=== PATIENT | female | born 2000 | race Caucasian/White ===

== ENCOUNTER 2020-12-16 11:08 | Inpatient (IN) | payer OTHER ==
[2020-12-16] MEDS ORDERED: Terbutaline 1 MG/ML SDV SUBCUT PRN (11:24)
[2020-12-16] MEDS ORDERED: Nalbuphine 10 MG/1 ML Vial IVPUSH PRN (11:24)
[2020-12-16] MEDS ORDERED: Water For Irrigation,Sterile 1,000 ML Container IRR PRN (11:24)
[2020-12-16] MEDS ORDERED: Butorphanol 1 MG/ML SDV IVPUSH PRN (11:24)
[2020-12-16] MEDS ORDERED: Lidocaine 1% 50 ML MDV INJECT PRN (11:24)
[2020-12-16] MEDS ORDERED: Misoprostol 200 MCG Tab PO PRN (11:24)
[2020-12-16] MEDS ORDERED: Sodium Chloride 0.9% 2.5 ML Syringe FLUSH PRN (11:24)
[2020-12-16] MEDS ORDERED: Ondansetron 4 MG/2 ML SDV IVPUSH PRN (11:24)
[2020-12-16] MEDS ORDERED: Sodium Chloride 0.9% 10 ML SDV IV PRN (11:24)
[2020-12-16] MEDS ORDERED: Sodium Chloride 0.9% 10 ML Syringe FLUSH PRN (11:24)
[2020-12-16] MEDS ORDERED: Tranexamic Acid 1,000 MG in Sodium Chloride 0.9% 100 ML IV PRN (11:24)
[2020-12-16] MEDS ORDERED: Carboprost Tromethamine 250 MCG/1 ML Amp IM PRN (11:24)
[2020-12-16] MEDS ORDERED: Methylergonovine 0.2 MG/1 ML Amp IM PRN (11:24)
[2020-12-16] MEDS ORDERED: Oxytocin/0.9 % Sodium Chloride 30 UNIT/500 ML BAG IV SCH ×2 (11:30)
[2020-12-16] MEDS ORDERED: Lactated Ringers 1,000 ML IV SCH (11:30)
[2020-12-16] MEDS ORDERED: Misoprostol 25 MCG (1/4 of 100 MCG) Tab VAG PRN (12:00)
[2020-12-16 12:42] LABS: BLOOD UREA NITROGEN,BUN 6 mg/dL (7.0-18.0); CARBON DIOXIDE,CO2 20.9 mmol/L (21.0-32.0); CHLORIDE,CL 103 mmol/L (98-107); GLUCOSE RANDOM 81 mg/dL (74-106); SODIUM,NA 138 mmol/L (136-145)
[2020-12-16] MEDS: Misoprostol 25 MCG (1/4 of 100 MCG) Tab VAG PRN ×2 (17:23→21:30)
[2020-12-17] MEDS ORDERED: Ropivacaine HCl/PF 200 ML ONE (02:04)
[2020-12-17] MEDS ORDERED: Bupivacaine 0.25% 10 ML SDV ONE (02:04)
--- NOTE | 2020-12-17 02:38 | PCM.PREANE ---
Preanesthetic Assessment - Anesthesia/Transfusion/Family Hx Anesthesia History: No Prior Anesthesia Family History of Anesthesia Reaction: No - Review of Systems General: No Symptoms Pulmonary: No Symptoms Cardiovascular: No Symptoms Gastrointestinal: No Symptoms Neurological: No Symptoms Other: Reports: None - Physical Assessment Height: 5 ft 8 in Weight: 248 lb Mental Status: Alert & Oriented x3 Dentition: Reports: Normal Dentition ROM/Head Extension: Full Lungs: Clear to Auscultation, Normal Respiratory Effort Cardiovascular: Regular Rate, Regular Rhythm - Lab Values: Laboratory Last Values WBC 8.23 K/uL (4.0-11.0) 12/16/20 11:52 RBC 4.38 M/uL (4.30-5.90) 12/16/20 11:52 Hgb 12.8 g/dL (12.0-16.0) 12/16/20 11:52 Hct 38.8 % (36.0-46.0) 12/16/20 11:52 MCV 88.6 fL (80.0-98.0) 12/16/20 11:52 MCH 29.2 pg (27.0-32.0) 12/16/20 11:52 MCHC 33.0 g/dL (31.0-37.0) 12/16/20 11:52 RDW Std Deviation 47.8 fl (28.0-62.0) 12/16/20 11:52 RDW Coeff of Denisa 15 % (11.0-15.0) 12/16/20 11:52 Plt Count 177 K/uL (150-400) 12/16/20 11:52 MPV 12.00 fL (7.40-12.00) 12/16/20 11:52 Nucleated RBC % 0.0 /100WBC 12/16/20 11:52 Nucleated RBCs # 0 K/uL 12/16/20 11:52 Sodium 138 mmol/L (136-145) 12/16/20 12:03 Potassium 4.0 mmol/L (3.5-5.1) 12/16/20 12:03 Chloride 103 mmol/L (98-107) 12/16/20 12:03 Carbon Dioxide 20.9 mmol/L (21.0-32.0) L 12/16/20 12:03 BUN 6 mg/dL (7.0-18.0) L 12/16/20 12:03 Creatinine 0.6 mg/dL (0.6-1.0) 12/16/20 12:03 Est Cr Clr Drug Dosing 149.62 mL/min 12/16/20 12:03 Estimated GFR (MDRD) > 60.0 ml/min 12/16/20 12:03 Glucose 81 mg/dL (74-106) 12/16/20 12:03 Uric Acid 4.5 mg/dL (2.6-7.2) 12/16/20 12:03 Calcium 9.2 mg/dL (8.5-10.1) 12/16/20 12:03 Total Bilirubin 0.2 mg/dL (0.2-1.0) 12/16/20 12:03 AST 21 IU/L (15-37) 12/16/20 12:03 ALT 28 IU/L (14-63) 12/16/20 12:03 Alkaline Phosphatase 249 U/L (46-116) H 12/16/20 12:03 Total Protein 7.0 g/dL (6.4-8.2) 12/16/20 12:03 Albumin 2.6 g/dL (3.4-5.0) L 12/16/20 12:03 Globulin 4.4 g/dL (2.6-4.0) H 12/16/20 12:03 Albumin/Globulin Ratio 0.6 (0.9-1.6) L 12/16/20 12:03 SARS-CoV-2 RNA (RK) NEGATIVE (NEGATIVE) 12/16/20 11:47 Blood Type O POSITIVE 12/16/20 11:52 Antibody Screen NEGATIVE 12/16/20 11:52 - Allergies Allergies/Adverse Reactions: Allergies Allergy/AdvReac Type Severity Reaction Status Date / Time No Known Allergies Allergy Verified 07/11/19 09:11 PreAnesthesia Questionnaire Gastrointestinal History: Reports: Hemorrhoids, Other (See Below) 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 History: 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: - Past Surgical History GI Surgical History: Reports: None - SUBSTANCE USE Tobacco Use Status *Q: Never Tobacco User Tobacco Use Within Last Twelve Months: No Second Hand Smoke Exposure: No Recreational Drug Use History: No - HOME MEDS Home Medications: Home Meds Vits #93/Iron Fum/FA [ Formula Tablet] 1 each PO DAILY 12/16/20 [History] - CURRENT (IN HOUSE) MEDS Current Meds: Current Medications Butorphanol Tartrate (Butorphanol 1 Mg/Ml Sdv) 1 mg IVPUSH Q1H PRN PRN Reason: Pain (severe 7-10) Carboprost Tromethamine (Carboprost Tromethamine 250 Mcg/1 Ml Amp) 250 mcg IM ASDIRECTED PRN PRN Reason: Post Hemorrhage Oxytocin/Sodium Chloride (Oxytocin 30 Unit/500 Ml-Ns) 30 unit in 500 mls @ 2 mls/hr IV TITRATE NABOR; Protocol Lactated Ringer's (Ringers, Lactated) 1,000 mls @ 150 mls/hr IV ASDIRECTED NABOR Last Infusion: 12/16/20 13:15 Dose: 150 mls/hr Documented by: Oxytocin/Sodium Chloride (Oxytocin 30 Unit/500 Ml-Ns) 30 unit in 500 mls @ 999 mls/hr IV TITRATE NABOR Tranexamic Acid 1,000 mg/ (Sodium Chloride) 110 mls @ 660 mls/hr IV ONETIME PRN PRN Reason: Bleeding Lidocaine HCl (Lidocaine 1% 50 Ml Mdv) 50 ml INJECT ONETIME PRN PRN Reason: Laceration repair Methylergonovine Maleate (Methylergonovine 0.2 Mg/1 Ml Amp) 0.2 mg IM ASDIRECTED PRN PRN Reason: Post Hemorrhage Misoprostol (Misoprostol 25 Mcg (1/4 Of 100 Mcg) Tab) 25 mcg VAG ONETIME PRN PRN Reason: Cervical Ripening Last Admin: 12/16/20 13:20 Dose: 25 mcg Documented by: Misoprostol (Misoprostol 25 Mcg (1/4 Of 100 Mcg) Tab) 25 mcg VAG Q4H PRN PRN Reason: Cervical Ripening Last Admin: 12/16/20 21:30 Dose: 25 mcg Documented by: Misoprostol (Misoprostol 200 Mcg Tab) 200 mcg PO ONETIME PRN PRN Reason: Post Hemorrhage Nalbuphine HCl (Nalbuphine 10 Mg/1 Ml Vial) 10 mg IVPUSH Q1H PRN PRN Reason: Pain (severe 7-10) Ondansetron HCl (Ondansetron 4 Mg/2 Ml Sdv) 4 mg IVPUSH Q6H PRN PRN Reason: Nausea/Vomiting Sodium Chloride (Sodium Chloride 0.9% 10 Ml Syringe) 10 ml FLUSH ASDIRECTED PRN PRN Reason: Keep Vein Open Sodium Chloride (Sodium Chloride 0.9% 2.5 Ml Syringe) 2.5 ml FLUSH ASDIRECTED PRN PRN Reason: Keep Vein Open Sodium Chloride (Sodium Chloride 0.9% 10 Ml Sdv) 10 ml IV ASDIRECTED PRN PRN Reason: IV Use Sterile Water (Water For Irrigation,Sterile 1,000 Ml Container) 1,000 ml IRR ASDIRECTED PRN PRN Reason: delivery Terbutaline Sulfate (Terbutaline 1 Mg/Ml Sdv) 0.25 mg SUBCUT ASDIRECTED PRN PRN Reason: Tacysystole Discontinued Medications Bupivacaine HCl (Bupivacaine 0.25% 10 Ml Sdv) Confirm Administered Dose 10 ml .ROUTE .[employer] ONE Stop: 12/17/20 02:05 Ropivacaine (Naropin 0.2%) Confirm Administered Dose 200 mls @ as directed .ROUTE .[employer] ONE Stop: 12/17/20 02:05
--- NOTE | 2020-12-17 02:38 | PCM.PREANE ---
Preanesthetic Assessment - Anesthesia/Transfusion/Family Hx Anesthesia History: No Prior Anesthesia Family History of Anesthesia Reaction: No Transfusion History: No Prior Transfusion(s) - Review of Systems General: No Symptoms Pulmonary: No Symptoms Cardiovascular: No Symptoms Gastrointestinal: No Symptoms Neurological: No Symptoms Other: Reports: None - Physical Assessment NPO Status Date: 12/17/20 NPO Status Time: 00:00 Height: 5 ft 8 in Weight: 248 lb ASA Class: 2 Mental Status: Alert & Oriented x3 Airway Class: Mallampati = 2 Dentition: Reports: Normal Dentition ROM/Head Extension: Full Lungs: Clear to Auscultation, Normal Respiratory Effort Cardiovascular: Regular Rate, Regular Rhythm - Lab Values: Laboratory Last Values WBC 8.23 K/uL (4.0-11.0) 12/16/20 11:52 RBC 4.38 M/uL (4.30-5.90) 12/16/20 11:52 Hgb 12.8 g/dL (12.0-16.0) 12/16/20 11:52 Hct 38.8 % (36.0-46.0) 12/16/20 11:52 MCV 88.6 fL (80.0-98.0) 12/16/20 11:52 MCH 29.2 pg (27.0-32.0) 12/16/20 11:52 MCHC 33.0 g/dL (31.0-37.0) 12/16/20 11:52 RDW Std Deviation 47.8 fl (28.0-62.0) 12/16/20 11:52 RDW Coeff of Denisa 15 % (11.0-15.0) 12/16/20 11:52 Plt Count 177 K/uL (150-400) 12/16/20 11:52 MPV 12.00 fL (7.40-12.00) 12/16/20 11:52 Nucleated RBC % 0.0 /100WBC 12/16/20 11:52 Nucleated RBCs # 0 K/uL 12/16/20 11:52 Sodium 138 mmol/L (136-145) 12/16/20 12:03 Potassium 4.0 mmol/L (3.5-5.1) 12/16/20 12:03 Chloride 103 mmol/L (98-107) 12/16/20 12:03 Carbon Dioxide 20.9 mmol/L (21.0-32.0) L 12/16/20 12:03 BUN 6 mg/dL (7.0-18.0) L 12/16/20 12:03 Creatinine 0.6 mg/dL (0.6-1.0) 12/16/20 12:03 Est Cr Clr Drug Dosing 149.62 mL/min 12/16/20 12:03 Estimated GFR (MDRD) > 60.0 ml/min 12/16/20 12:03 Glucose 81 mg/dL (74-106) 12/16/20 12:03 Uric Acid 4.5 mg/dL (2.6-7.2) 12/16/20 12:03 Calcium 9.2 mg/dL (8.5-10.1) 12/16/20 12:03 Total Bilirubin 0.2 mg/dL (0.2-1.0) 12/16/20 12:03 AST 21 IU/L (15-37) 12/16/20 12:03 ALT 28 IU/L (14-63) 12/16/20 12:03 Alkaline Phosphatase 249 U/L (46-116) H 12/16/20 12:03 Total Protein 7.0 g/dL (6.4-8.2) 12/16/20 12:03 Albumin 2.6 g/dL (3.4-5.0) L 12/16/20 12:03 Globulin 4.4 g/dL (2.6-4.0) H 12/16/20 12:03 Albumin/Globulin Ratio 0.6 (0.9-1.6) L 12/16/20 12:03 SARS-CoV-2 RNA (RK) NEGATIVE (NEGATIVE) 12/16/20 11:47 Blood Type O POSITIVE 12/16/20 11:52 Antibody Screen NEGATIVE 12/16/20 11:52 - Allergies Allergies/Adverse Reactions: Allergies Allergy/AdvReac Type Severity Reaction Status Date / Time No Known Allergies Allergy Verified 07/11/19 09:11 - Blood Blood Available: Yes Product(s) Available: PRBC - Anesthesia Plan Pre-Op Medication Ordered: None - Acknowledgements Anesthesia Type Planned: Epidural Pt an Appropriate Candidate for the Planned Anesthesia: Yes Alternatives and Risks of Anesthesia Discussed w Pt/Guardian: Yes Pt/Guardian Understands and Agrees with Anesthesia Plan: Yes PreAnesthesia Questionnaire Gastrointestinal History: Reports: Hemorrhoids, Other (See Below) 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: - Past Surgical History GI Surgical History: Reports: None - SUBSTANCE USE Tobacco Use Status *Q: Never Tobacco User Tobacco Use Within Last Twelve Months: No Second Hand Smoke Exposure: No Recreational Drug Use History: No - HOME MEDS Home Medications: Home Meds Vits #93/Iron Fum/FA [ Formula Tablet] 1 each PO DAILY 12/16/20 [History] - CURRENT (IN HOUSE) MEDS Current Meds: Current Medications Butorphanol Tartrate (Butorphanol 1 Mg/Ml Sdv) 1 mg IVPUSH Q1H PRN PRN Reason: Pain (severe 7-10) Carboprost Tromethamine (Carboprost Tromethamine 250 Mcg/1 Ml Amp) 250 mcg IM ASDIRECTED PRN PRN Reason: Post Hemorrhage Oxytocin/Sodium Chloride (Oxytocin 30 Unit/500 Ml-Ns) 30 unit in 500 mls @ 2 mls/hr IV TITRATE NABOR; Protocol Lactated Ringer's (Ringers, Lactated) 1,000 mls @ 150 mls/hr IV ASDIRECTED NABOR Last Infusion: 12/16/20 13:15 Dose: 150 mls/hr Documented by: Oxytocin/Sodium Chloride (Oxytocin 30 Unit/500 Ml-Ns) 30 unit in 500 mls @ 999 mls/hr IV TITRATE NABOR Tranexamic Acid 1,000 mg/ (Sodium Chloride) 110 mls @ 660 mls/hr IV ONETIME PRN PRN Reason: Bleeding Lidocaine HCl (Lidocaine 1% 50 Ml Mdv) 50 ml INJECT ONETIME PRN PRN Reason: Laceration repair Methylergonovine Maleate (Methylergonovine 0.2 Mg/1 Ml Amp) 0.2 mg IM ASDIRECTED PRN PRN Reason: Post Hemorrhage Misoprostol (Misoprostol 25 Mcg (1/4 Of 100 Mcg) Tab) 25 mcg VAG ONETIME PRN PRN Reason: Cervical Ripening Last Admin: 12/16/20 13:20 Dose: 25 mcg Documented by: Misoprostol (Misoprostol 25 Mcg (1/4 Of 100 Mcg) Tab) 25 mcg VAG Q4H PRN PRN Reason: Cervical Ripening Last Admin: 12/16/20 21:30 Dose: 25 mcg Documented by: Misoprostol (Misoprostol 200 Mcg Tab) 200 mcg PO ONETIME PRN PRN Reason: Post Hemorrhage Nalbuphine HCl (Nalbuphine 10 Mg/1 Ml Vial) 10 mg IVPUSH Q1H PRN PRN Reason: Pain (severe 7-10) Ondansetron HCl (Ondansetron 4 Mg/2 Ml Sdv) 4 mg IVPUSH Q6H PRN PRN Reason: Nausea/Vomiting Sodium Chloride (Sodium Chloride 0.9% 10 Ml Syringe) 10 ml FLUSH ASDIRECTED PRN PRN Reason: Keep Vein Open Sodium Chloride (Sodium Chloride 0.9% 2.5 Ml Syringe) 2.5 ml FLUSH ASDIRECTED PRN PRN Reason: Keep Vein Open Sodium Chloride (Sodium Chloride 0.9% 10 Ml Sdv) 10 ml IV ASDIRECTED PRN PRN Reason: IV Use Sterile Water (Water For Irrigation,Sterile 1,000 Ml Container) 1,000 ml IRR ASDIRECTED PRN PRN Reason: delivery Terbutaline Sulfate (Terbutaline 1 Mg/Ml Sdv) 0.25 mg SUBCUT ASDIRECTED PRN PRN Reason: Tacysystole Discontinued Medications Bupivacaine HCl (Bupivacaine 0.25% 10 Ml Sdv) Confirm Administered Dose 10 ml .ROUTE .STK-MED ONE Stop: 12/17/20 02:05 Ropivacaine (Naropin 0.2%) Confirm Administered Dose 200 mls @ as directed .ROUTE .STK-MED ONE Stop: 12/17/20 02:05 - Pre-Procedure Checklist Attending Provider Aware: Yes Chart Reviewed: Yes Consent Signed: Yes Labs Reviewed: Yes VS/FHR Reviewed: Yes Patient Identification Confirmation Method: Reports: Verbal Patient Pt an Appropriate Candidate for the Planned Anesthesia: Yes Alternatives and Risks of Anesthesia Discussed w Pt/Guardian: Yes - Procedure Procedure Start Date: 12/17/20 Procedure Start Time: 02:[address]: Reports: Blood Pressure, Heart Rate, SPO2 Functional IV: Yes Safety Measures: Reports: Patient Identified, Procedure Verified, Site Verified, Procedure Time Out Patient Position: Reports: Sitting Prep: Reports: Betadine x3 Local Anesthetic: Reports: Intradermal Wheal w Lidocaine 1% Regional Placement Level: Reports: L3-4 Needle: Reports: 17 g Touhy Approach: Reports: Midline Technique: Reports: JOANNE Plastic Syringe Parasthesia: Reports: None Fluid Obtained: Reports: None Test Dose Medication: Reports: Lidocaine 1.5% w Epinephrine 1:200,000 Test Dose Response: Reports: Negative Loading Dose Time: 02:15 Loading Dose Medication: bupivicaine 0.25% 10cc Loading Dose Patient Position: sitting Continuous Infusion Start Time: 02:20 Continuous Infusion Medication: ropivicaine 0.2% Continuous Infusion Rate: 16 Continuous Infusion PCS Bolus Option: 4 Continuous Infusion Lockout Dose (cc/hr): 32 Patient Position Post Placement: Reports: Supline/CELESTINO VS and FHR Monitored in Unit Post Placement: Yes Procedure End Date: 12/17/20 Procedure End Time: 03:10
--- NOTE | 2020-12-17 06:41 | PCM.DEL ---
L & D Note - General Info Date of Service: 12/17/20 Mother's Due Date: 12/19/20 - Delivery Note Labor: Induced by Oxytocin Cervical Ripening Method: Misoprostil Delivery Outcome: Livebirth Infant Delivery Method: Spontaneous Vaginal Delivery-Single Presentation: Left Occiput Anterior (KYLAH) Nuchal Cord: None Prep: Other Anesthesia Type: Epidural Amniotic Fluid Description: Clear Episiotomy Type: None Laceration: 2nd Degree Suture type: Vicryl Suture size: 3-0 Placenta: Intact, Spontaneous Cord: 3 Vessels Estimated Blood Loss: 200 Resuscitation Needed: No : Suctioned Score 1 min: 8 Score 5 min: 9 Delivery Comments (Free Text/Narrative):: induction for mild pre-eclampsia, of Liveborn female 8/9 weigth 3680 grams, cord blood collection for banking performed. - General Info Date of Service: 12/17/20 - Patient Data Weight - Most Recent: 112.491 kg Lab Results Last 24 Hours: Laboratory Results - last 24 hr 12/16/20 12/16/20 12/16/20 Range/Units 11:47 11:52 11:52 WBC 8.23 (4.0-11.0) K/uL RBC 4.38 (4.30-5.90) M/uL Hgb 12.8 (12.0-16.0) g/dL Hct 38.8 (36.0-46.0) % MCV 88.6 (80.0-98.0) fL MCH 29.2 (27.0-32.0) pg MCHC 33.0 (31.0-37.0) g/dL RDW Std Deviation 47.8 (28.0-62.0) fl RDW Coeff of Denisa 15 (11.0-15.0) % Plt Count 177 (150-400) K/uL MPV 12.00 (7.40-12.00) fL Nucleated RBC % 0.0 /100WBC Nucleated RBCs # 0 K/uL Sodium (136-145) mmol/L Potassium (3.5-5.1) mmol/L Chloride (98-107) mmol/L Carbon Dioxide (21.0-32.0) mmol/L BUN (7.0-18.0) mg/dL Creatinine (0.6-1.0) mg/dL Est Cr Clr Drug Dosing mL/min Estimated GFR (MDRD) ml/min Glucose (74-106) mg/dL Uric Acid (2.6-7.2) mg/dL Calcium (8.5-10.1) mg/dL Total Bilirubin (0.2-1.0) mg/dL AST (15-37) IU/L ALT (14-63) IU/L Alkaline Phosphatase (46-116) U/L Total Protein (6.4-8.2) g/dL Albumin (3.4-5.0) g/dL Globulin (2.6-4.0) g/dL Albumin/Globulin Ratio (0.9-1.6) SARS-CoV-2 RNA (RK) NEGATIVE (NEGATIVE) Blood Type O POSITIVE Antibody Screen NEGATIVE 12/16/20 12/16/20 Range/Units 12:03 12:03 WBC (4.0-11.0) K/uL RBC (4.30-5.90) M/uL Hgb (12.0-16.0) g/dL Hct (36.0-46.0) % MCV (80.0-98.0) fL MCH (27.0-32.0) pg MCHC (31.0-37.0) g/dL RDW Std Deviation (28.0-62.0) fl RDW Coeff of Denisa (11.0-15.0) % Plt Count (150-400) K/uL MPV (7.40-12.00) fL Nucleated RBC % /100WBC Nucleated RBCs # K/uL Sodium 138 (136-145) mmol/L Potassium 4.0 (3.5-5.1) mmol/L Chloride 103 (98-107) mmol/L Carbon Dioxide 20.9 L (21.0-32.0) mmol/L BUN 6 L (7.0-18.0) mg/dL Creatinine 0.6 (0.6-1.0) mg/dL Est Cr Clr Drug Dosing 149.62 mL/min Estimated GFR (MDRD) > 60.0 ml/min Glucose 81 (74-106) mg/dL Uric Acid 4.5 (2.6-7.2) mg/dL Calcium 9.2 (8.5-10.1) mg/dL Total Bilirubin 0.2 (0.2-1.0) mg/dL AST 21 (15-37) IU/L ALT 28 (14-63) IU/L Alkaline Phosphatase 249 H (46-116) U/L Total Protein 7.0 (6.4-8.2) g/dL Albumin 2.6 L (3.4-5.0) g/dL Globulin 4.4 H (2.6-4.0) g/dL Albumin/Globulin Ratio 0.6 L (0.9-1.6) SARS-CoV-2 RNA (RK) (NEGATIVE) Blood Type Antibody Screen Med Orders - Current: Current Medications Butorphanol Tartrate (Butorphanol 1 Mg/Ml Sdv) 1 mg IVPUSH Q1H PRN PRN Reason: Pain (severe 7-10) Carboprost Tromethamine (Carboprost Tromethamine 250 Mcg/1 Ml Amp) 250 mcg IM ASDIRECTED PRN PRN Reason: Post Hemorrhage Oxytocin/Sodium Chloride (Oxytocin 30 Unit/500 Ml-Ns) 30 unit in 500 mls @ 2 mls/hr IV TITRATE NABOR; Protocol Last Admin: 12/17/20 02:49 Dose: 2 munits/min, 2 mls/hr Documented by: Lactated Ringer's (Ringers, Lactated) 1,000 mls @ 150 mls/hr IV ASDIRECTED NABOR Last Infusion: 12/16/20 13:15 Dose: 150 mls/hr Documented by: Oxytocin/Sodium Chloride (Oxytocin 30 Unit/500 Ml-Ns) 30 unit in 500 mls @ 999 mls/hr IV TITRATE NABOR Tranexamic Acid 1,000 mg/ (Sodium Chloride) 110 mls @ 660 mls/hr IV ONETIME PRN PRN Reason: Bleeding Lidocaine HCl (Lidocaine 1% 50 Ml Mdv) 50 ml INJECT ONETIME PRN PRN Reason: Laceration repair Methylergonovine Maleate (Methylergonovine 0.2 Mg/1 Ml Amp) 0.2 mg IM ASDIRECTED PRN PRN Reason: Post Hemorrhage Misoprostol (Misoprostol 25 Mcg (1/4 Of 100 Mcg) Tab) 25 mcg VAG ONETIME PRN PRN Reason: Cervical Ripening Last Admin: 12/16/20 13:20 Dose: 25 mcg Documented by: Misoprostol (Misoprostol 25 Mcg (1/4 Of 100 Mcg) Tab) 25 mcg VAG Q4H PRN PRN Reason: Cervical Ripening Last Admin: 12/16/20 21:30 Dose: 25 mcg Documented by: Misoprostol (Misoprostol 200 Mcg Tab) 200 mcg PO ONETIME PRN PRN Reason: Post Hemorrhage Nalbuphine HCl (Nalbuphine 10 Mg/1 Ml Vial) 10 mg IVPUSH Q1H PRN PRN Reason: Pain (severe 7-10) Ondansetron HCl (Ondansetron 4 Mg/2 Ml Sdv) 4 mg IVPUSH Q6H PRN PRN Reason: Nausea/Vomiting Sodium Chloride (Sodium Chloride 0.9% 10 Ml Syringe) 10 ml FLUSH ASDIRECTED PRN PRN Reason: Keep Vein Open Sodium Chloride (Sodium Chloride 0.9% 2.5 Ml Syringe) 2.5 ml FLUSH ASDIRECTED PRN PRN Reason: Keep Vein Open Sodium Chloride (Sodium Chloride 0.9% 10 Ml Sdv) 10 ml IV ASDIRECTED PRN PRN Reason: IV Use Sterile Water (Water For Irrigation,Sterile 1,000 Ml Container) 1,000 ml IRR ASDIRECTED PRN PRN Reason: delivery Terbutaline Sulfate (Terbutaline 1 Mg/Ml Sdv) 0.25 mg SUBCUT ASDIRECTED PRN PRN Reason: Tacysystole Discontinued Medications Bupivacaine HCl (Bupivacaine 0.25% 10 Ml Sdv) Confirm Administered Dose 10 ml .ROUTE .STK-MED ONE Stop: 12/17/20 02:05 Ropivacaine (Naropin 0.2%) Confirm Administered Dose 200 mls @ as directed .ROUTE .STK-MED ONE Stop: 12/17/20 02:05 - Problem List & Annotations (1) Mild pre-eclampsia SNOMED Code(s): 23907586 Code(s): O14.00 - MILD TO MODERATE PRE-ECLAMPSIA, UNSPECIFIED TRIMESTER Status: Acute Current Visit: Yes (2) Vaginal delivery SNOMED Code(s): 478190409 Code(s): O80 - ENCOUNTER FOR FULL-TERM UNCOMPLICATED DELIVERY Status: Acute Current Visit: Yes - Problem List Review Problem List Initiated/Reviewed/Updated: Yes
[2020-12-17] MEDS ORDERED: Bisacodyl 10 MG Supp RECTAL PRN (06:42)
[2020-12-17] MEDS ORDERED: Acetaminophen 500 MG Tab PO PRN (06:42)
[2020-12-17] MEDS ORDERED: Ibuprofen 400 MG Tab PO PRN (06:42)
[2020-12-17] MEDS ORDERED: Benzocaine/Menthol 20%-0.5% Spray 78 GM Cannister TOP PRN (06:42)
[2020-12-17] MEDS ORDERED: Tranexamic Acid 1,000 MG in Sodium Chloride 0.9% 100 ML IV PRN (06:42)
[2020-12-17] MEDS ORDERED: Lanolin 100% Cream 7 GM Tube TOP PRN (06:42)
--- NOTE | 2020-12-17 08:51 | PCM.POSTAN ---
POST ANESTHESIA ASSESSMENT - MENTAL STATUS Mental Status: Alert, Oriented - RESPIRATORY Respiratory Status: Respiratory Rate WNL, Airway Patent, O2 Saturation Stable - CARDIOVASCULAR CV Status: Pulse Rate WNL, Blood Pressure Stable - GASTROINTESTINAL GI Status: No Symptoms - POST OP HYDRATION Hydration Status: Adequate & Stable
--- NOTE | 2020-12-17 08:52 | PCM48HPAN ---
Post Anesthesia Note - EVALUATION WITHIN 48HRS OF ANESTHETIC Vital Signs in Normal Range: Yes Patient Participated in Evaluation: Yes Respiratory Function Stable: Yes Airway Patent: Yes Cardiovascular Function Stable: Yes Hydration Status Stable: Yes Pain Control Satisfactory: Yes Nausea and Vomiting Control Satisfactory: Yes Mental Status Recovered: Yes
[2020-12-17] MEDS: Ibuprofen 800 MG Tab PO PRN ×2 (10:29→21:54)
[2020-12-17] MEDS: Prenatal Multivitamin with Calcium/Folic Acid/Iron Tab PO SCH (10:29)
[2020-12-17] MEDS: Acetaminophen 500 MG Tab PO PRN ×2 (10:29→21:53)
[2020-12-17] MEDS: Witch Hazel Medicated Pads 40/Jar TOP PRN (10:30)
--- NOTE | 2020-12-17 12:02 | OR ---
SURGEON: Florencia Marley M.D. DATE OF PROCEDURE: 12/17/2020 PREOPERATIVE DIAGNOSIS: 38-5/7 weeks intrauterine , mild preeclampsia. POSTOPERATIVE DIAGNOSIS: 38-5/7 weeks intrauterine , mild preeclampsia. PROCEDURE: Cytotec and Pitocin induction of labor, term spontaneous vaginal delivery, repair of second-degree laceration. PRIMARY SURGEON: Florencia Marley M.D. ANESTHESIA: Epidural. ESTIMATED BLOOD LOSS: Less than 200 mL. FINDINGS: Liveborn female. score of 8 and 9, weighing 3680 g. Placenta spontaneous, Schultze intact with 3 vessels. Perineum second-degree laceration, repaired. COMPLICATIONS: None known. DISPOSITION: Stable to Recovery. Cord blood was collected for cord blood registry for banking per patient request. She did bring in the kit. BRIEF HISTORY: This is a 20-year-old female, G1, P0, presents at 38-5/7 weeks' gestation with mild preeclampsia. She was started on Cytotec initially. The cervix was closed. She received 3 doses of Cytotec. She had category 1 heart tones. Blood pressure remained in the mild range. She progressed to 3 cm after spontaneous rupture of membranes. She received an epidural for pain control. She progressed to complete. DESCRIPTION OF PROCEDURE: With the patient in multiple positions, the patient pushed over 45 minutes time period to a 5+ station, at which time the head was delivered spontaneously and atraumatically over the perineum with support with subsequent delivery of the 's shoulders and body without any difficulty. The cord was noted to be very short, and therefore, I held the infant very close to the perineum for 1 minute, doubly clamped the cord and cut, and the infant was handed to the nurse in attendance at delivery. The infant was a liveborn female, score of 8 and 9, weighing 3680 g. Cord blood was carefully collected for cord ABGs as well as routine cord blood sampling. The cord blood collection kit was then utilized to fill the bag with cord blood and the bag was approximately 2/3 filled with blood and then clamped. The needle was removed and discarded and prepared in accordance with the package directions and provided back to the patient. After collection of the cord blood, the placenta was delivered spontaneously, Schultze intact with 3 vessels. Upon inspection of the pelvis and perineum, there were no periurethral, vaginal sidewall, cervical, or rectal laceration. There was a small second-degree perineal laceration that was repaired with a running lock suture of 3-0 Vicryl for the vaginal tissue, a deep running suture of 3-0 Monocryl for the perineum. Final sponge, needle, and instrument counts were correct. There were no known complications. Mother and baby remained in LDR in good condition. ROCHELLE MONROY /[id number]
[2020-12-17] MEDS: Docusate Sodium 100 MG Cap PO PRN (21:54)
[2020-12-18] MEDS: Witch Hazel Medicated Pads 40/Jar TOP PRN (02:23)
[2020-12-18] MEDS: Acetaminophen 500 MG Tab PO PRN ×2 (07:55→13:51)
[2020-12-18] MEDS: Ibuprofen 800 MG Tab PO PRN ×2 (07:55→18:15)
[2020-12-18] MEDS: Docusate Sodium 100 MG Cap PO PRN (07:55)
[2020-12-18] MEDS: Prenatal Multivitamin with Calcium/Folic Acid/Iron Tab PO SCH (09:41)
== END 2020-12-18 18:00 | disposition home or self-care (01) | DRG 807 ==
LOC: MW.OBCHECK 11:08 → MW.OB 11:11 → MW.OBCHECK 11:25 → OBSVTOIN 12-17 06:11 → MW.OB 12-17 11:24
PROVIDERS: ADMIT Obstetrics & Gynecology; ATTEND Obstetrics & Gynecology
PROC: 10E0XZZ Delivery of Products of Conception, External Approach (ICD-10-PCS; principal; 2020-12-17)
PROC: 0KQM0ZZ Repair Perineum Muscle, Open Approach (ICD-10-PCS; 2020-12-17)
PROC: 3E0P7VZ Introduction of Hormone into Female Reproductive, Via Natural or Artificial Opening (ICD-10-PCS; 2020-12-17)
PROC: 3E033VJ Introduction of Other Hormone into Peripheral Vein, Percutaneous Approach (ICD-10-PCS; 2020-12-17)
PROC: 3E0R3BZ Introduction of Anesthetic Agent into Spinal Canal, Percutaneous Approach (ICD-10-PCS; 2020-12-17)
DX: O14.04 Mild to moderate pre-eclampsia, complicating childbirth (principal); Z37.0 Single live birth; Z3A.38 38 weeks gestation of pregnancy; O70.1 Second degree perineal laceration during delivery; Z20.822 Contact with and (suspected) exposure to COVID-19
CPT/HCPCS: 36415; 59025; 59409; 80053; 82803; 84550; 85014; 85018; 85027; 86592; 86850; 86900; 86901; A9270-GY; J2590; J2795; J3490; J7120; U0002